=== PATIENT | male | born 1955 | race Caucasian/White ===

== ENCOUNTER 2022-04-07 09:53 | Outpatient (CLI) | payer BC, SELFPAY ==
[2022-04-07 14:33] LABS: Chloride* 101 mmol/L (96-114)
[2022-04-07 14:34] LABS: Potassium* 4.6 mmol/L (3.6-5.1); Sodium* 133 mmol/L (135-149)
[2022-04-07 14:36] LABS: Creatinine* 0.7 mg/dL (0.5-1.5); Estimated Glomerular Filt Rate 102.25
[2022-04-07 14:37] LABS: Blood Urea Nitrogen* 12 mg/dL (7-30); Calcium* 8.9 mg/dL (8.4-10.6); Carbon Dioxide* 27 mmol/L (20-32); Glucose* 207 mg/dL (60-115)
== END 2022-04-07 09:54 | disposition home or self-care (01) ==
PROVIDERS: PCP Internal Medicine; Visit Provider Family Medicine
DX: M10.9 Gout, unspecified (principal); I10 Essential (primary) hypertension
CPT/HCPCS: 80048; 84550

== ENCOUNTER 2022-07-16 16:35 | Outpatient (CLI) | payer BC, SELFPAY ==
--- OUTSIDE RECORDS SUMMARY | 2022-07-20 09:59 | XMS_ITS | Clinical Summary ---
:1955 Author Organization [facility] [place] [address] Care Team Providers Name Role Phone [facility] Primary Care Provider Allergies No known active allergies Medications Medication Sig Dispensed Refills Start Date End Date Status PRILOSEC 20 MG take 1 capsule (20 30 3 11/13/2007 Active CAPIndications: mg) by oral route Abdominal pain, once daily before unspecified site a meal Active Problems Not on file Immunizations Name Administration Dates Next Due Tdap 04/26/2011 Family History Medical History Relation Name Comments Good Health Father Hypertension Father Good Health Paternal Grandfather Relation Name Status Comments Father Paternal Grandfather Social History Tobacco Use Types Packs/Day Years Used Date Never Smoker Comments: occasional cigar Alcohol Use Standard Drinks/Week Comments Yes 0 (1 standard drink = 0.6 oz pure every other weekend 0-2 beers per alcohol) week. Sex Assigned at Date Recorded Not on file Obstetrics History Last Filed Vital Signs Vital Sign Reading Time Taken Comments Blood Pressure 151/94 11/13/2007 2:37 PM [employer] Pulse 66 11/13/2007 2:37 PM [employer] Temperature 36.7 ??C (98 ??F) 11/13/2007 2:37 PM [employer] Respiratory Rate - - Oxygen Saturation - - Inhaled Oxygen Concentration - - Weight 97.9 kg (215 lb 12.8 oz) 11/13/2007 2:37 PM [employer] Height - - Body Mass Index - - Plan of Treatment Upcoming Encounters Date Type Specialty Care Team Description 07/21/2022 Office Visit Tete Merino, DPM [address] [place], [place] [address] (Wo rk) Health Maintenance Due Date Last Done Comments COVID-19 vaccine series (#1) 04/12/1956 Depression screening for age 12+ 1968 BMI (ht and wt on same day) for age 18+ 1974 Hepatitis C screening for age 18-79 1974 Zoster (shingles) series for age 50+ (1 of 2006 2) Lipids for age 45-75 02/04/2012 02/03/2007, 02/03/2007 Colonoscopy through age 75 04/25/2017 04/25/2007 Tetanus booster 04/26/2021 04/26/2011 Pneumococcal series for age 65+ (1 - PCV) 2021 Influenza for age 65+ 06/03/2022 Tdap Completed 04/26/2011 Results Not on filefrom Last 3 Months Insurance Payer Benefit Plan / Subscriber ID Effective Dates Phone Addre ss Type Group [employer] [id number] 2013-[employer] [address] [place] [address] [employer] [place] FED [id number] 2009-[employer]en [address] [address] [place] [address] Chun Mendez Motor Vehicle Self 1955 [address] (Home) [place] [address] Care Teams Pet Ambassador Relationship Specialty Start Date End Date [place] [facility] [place] - [place] 12/08/07 [address] [place] [address]
== END 2022-07-16 16:36 | disposition home or self-care (01) ==
LOC: AMB 07-20 09:48
PROVIDERS: PCP Internal Medicine; Visit Provider Emergency Medicine
DX: S99.912A Unspecified injury of left ankle, initial encounter (principal); W11.XXXA Fall on and from ladder, initial encounter; Y92.9 Unspecified place or not applicable
CPT/HCPCS: A0425; A0427

== ENCOUNTER 2022-07-16 17:12 | Emergency (ER) | payer BC, SELFPAY ==
[2022-07-16] VITALS (55 sets, daily range): BP systolic 133–177; BP diastolic 75–94; PULSE 67–83; RESP 18; TEMP 37.1; O2SAT 92–98; BMI 31.4
--- NOTE | 2022-07-16 | CRLHL7_ITS ---
For Patients: As a result of the Century Cures Act, medical imaging exams and procedure reports are released immediately into your electronic medical record. You may view this report before your referring provider. If you have questions, please contact your health care provider. Indication: Trauma, fall. Technique: Two views of the left calcaneus. Comparison: None Findings/Impression: Obliquely oriented fracture through the mid calcaneus, extending through the inferior calcaneal cortex and involving the talocalcaneal joint. Small ankle joint effusion and edema within Kager`s fat pad. Dictated by Antonio Mancia MD @ 07/16/2022 6:21:23 PM (Electronically Signed)
--- NOTE | 2022-07-16 17:21 | CRLHL7_ITS ---
For Patients: As a result of the Century Cures Act, medical imaging exams and procedure reports are released immediately into your electronic medical record. You may view this report before your referring provider. If you have questions, please contact your health care provider. Indication: Injury. Technique: Three views of the left ankle. Comparison: None available. Findings/Impression: Postsurgical changes of plate and screw fixation of the distal fibula. Prior talus pinning. Ankle mortise is symmetric. Obliquely oriented fracture through the mid calcaneus, with intra-articular involvement of the talocalcaneal joint. Small ankle joint effusion. Edema is noted within Kager`s fat pad. Dictated by Antonio Mancia MD @ 07/16/2022 6:17:45 PM (Electronically Signed)
--- NOTE | 2022-07-16 17:48 | ED_ITS ---
HPI - General Adult General Date Seen: 07/16/22 Chief complaint: Extremity Pain/Injury, Lower Stated complaint: Fell of ladder Time Seen by Provider: 07/16/22 17:21 Source: patient and EMS History of Present Illness HPI narrative: Patient is a 66-year-old male who was 14 ft up on the collapsible ladder when the base of the ladder went out, he says he rode the ladder down landing hard on his feet, he thinks. He complains of pain in his left ankle. He called 911 due to inability to bear weight. He was not given any pain medications by EMS. He says he did not hit his head, denies loss of consciousness. He specifically denies any neck or back pain. Denies chest pain or abdominal pain. No difficulty breathing. No vomiting or nausea. He notes swelling and possible deformity in the left ankle. There is a splint in place from the paramedics. He notes a history of hypertension, did not take his antihypertensive medications this morning. He denies any allergies to medications, does not smoke or drink with any regularity. Not sure when his last tetanus was. He does note that he scraped his right tejada but does not think that there is any bony injury there. Denies any other extremity injury. Related Data Previous Rx's Medication Instructions Recorded losartan 50 mg tablet 50 mg PO QDAY #90 tabs 06/10/22 Allergies Allergy/AdvReac Type Severity Reaction Status Date / Time No Known Allergies Allergy Verified 07/16/22 17:17 Review of Systems Status of ROS: Reports: 10 or more systems reviewed and unremarkable except as noted in History and below [facility] Medical History Gout Obesity with body mass index greater than 30 Obstructive sleep apnea syndrome Primary hypertension Surgical History History of arthroscopic knee surgery (10/21/21) Social History Smoking Status: Never smoker Do you use any of these nicotine containing products: None Second hand tobacco smoke exposure: No How often do you have a drink containing alcohol: 2-4 times a month How many standard drinks containing alcohol do you have on a typical day: 3 or 4 How often do you have six or more drinks on one occasion: Less than monthly AUDIT-C Alcohol total score: 4 Non-prescribed substance use: denies use service: No Exam Narrative: Exam Narrative: Primary survey: Airway: Patent. Breathing: Nonlabored. Lungs clear. Circulation: Pulses intact. No external bleeding. Disability: GCS 15. Secondary survey: Vital signs reviewed In general, an alert, nontoxic Head: Normocephalic, atraumatic. Eyes: Pupils are equal reactive. Extraocular movements full. ENT: No facial trauma. Dentition intact. Neck: Cervical collar in place. No midline cervical tenderness. No anterior neck trauma. Chest: No visible signs of chest trauma. No tenderness to palpation. Heart regular rate and rhythm. Lungs clear bilaterally. Abdomen: No visible signs of trauma. Soft, nondistended, nontender to palpation. Back: No visible signs of trauma. Nontender to palpation. Pelvis: Stable, nontender. Extremities: The left lower extremity is notable for swelling and bruising noted around the ankle and foot. On initial exam I did not palpate the area as he was having significant pain with removal of the splint. Dorsalis pedis pulse was intact. Sensation normal to light touch. On the right, he has a small abrasion over the anterior tibia. There is no bony tenderness or deformity. Bilateral upper extremities are atraumatic. Neurologic: Alert, conversant, moves all extremities to command. Skin: Warm and dry, no abrasions or lacerations. Const: Vital Signs, click to edit/add: Vital Signs - 24 hr 07/16/22 17:17 07/16/22 17:30 07/16/22 17:40 Temperature 98.8 F Pulse Rate 82 79 Pulse Rate [Apical ] 74 Respiratory Rate 18 Blood Pressure Blood Pressure [Le ft Upper Arm] 174/93 H Pulse Oximetry 98 98 97 Oxygen Delivery Me thod Room Air 07/16/22 17:44 07/16/22 17:50 07/16/22 17:52 Temperature Pulse Rate 81 72 74 Pulse Rate [Apical ] Respiratory Rate Blood Pressure 171/91 H 166/92 H Blood Pressure [Le ft Upper Arm] Pulse Oximetry 94 96 96 Oxygen Delivery Me thod 07/16/22 18:00 07/16/22 18:02 07/16/22 18:10 Temperature Pulse Rate 75 75 73 Pulse Rate [Apical ] Respiratory Rate Blood Pressure 172/94 H Blood Pressure [Le ft Upper Arm] Pulse Oximetry 96 98 97 Oxygen Delivery Me thod 07/16/22 18:12 07/16/22 18:20 07/16/22 18:22 Temperature Pulse Rate 71 67 68 Pulse Rate [Apical ] Respiratory Rate Blood Pressure 177/92 H 173/81 H Blood Pressure [Le ft Upper Arm] Pulse Oximetry 97 97 96 Oxygen Delivery Me thod 07/16/22 18:30 Temperature Pulse Rate 70 Pulse Rate [Apical ] Respiratory Rate Blood Pressure Blood Pressure [Le ft Upper Arm] Pulse Oximetry 97 Oxygen Delivery Me thod Documenting provider has reviewed patient's vital signs: yes Course Course Hospital Course: Following initial evaluation, I ordered x-rays of the left ankle based on patient's description of pain and appearance of swelling and bruising around the ankle. However, review those x-rays does show that the ankle has hardware in appears otherwise normal. There is evidence of a calcaneal fracture which certainly fits with his mechanism of injury. Dedicated calcaneal films were therefore ordered. In the meantime, I did a fast exam. I do not see any evidence of pericardial effusion, fluid in splenorenal, Morison's pouch or pelvis views. He has bilateral sliding lung signs. I have asked him several times about any thoracic or lumbar pain, he specifically denies any back pain at all, so at present time I am not pursuing any further imaging. He did request something for pain after his x-rays and is given 4 mg of morphine with improvement in his pain. He has been somewhat hypertensive but otherwise stable from the standpoint of his vital signs. Given that he has not taken his losartan today the hypertension is not unexpected. Patient's tetanus is noted to be updated as of November 2021. X-rays of the calcaneus by my review show an intra-articular fracture of the calcaneus. Final radiology report is as follows:Findings/Impression: Obliquely oriented fracture through the mid calcaneus, extending through the inferior calcaneal cortex and involving the talocalcaneal joint. Small ankle joint effusion and edema within Kager`s fat pad. I sent the x-rays to our orthopedic doctor for review and ice as to whether transfer would be required. I did have to wait about 45 minutes for a response. He did recommend transfer to a trauma facility, so at that time I called [facility] and arranged for transfer to their ER. I also ordered a CT scan of his left foot while he was waiting. I placed a posterior splint as well. He had another 4 mg of morphine for pain control, and I also gave him his 50 mg of losartan. We also had to wait an additional couple hours for transfer, but given that the patient had no other identified injuries, was hemodynamically stable and is unlikely to receive any specific interventions tonight, did not feel that we needed to switch to alternative transportation. Vital Signs Vital signs: Initial Vital Signs Temperature 98.8 F 07/16/22 17:17 Temperature Source Temporal Artery Scan 07/16/22 17:17 Pulse Rate 74 07/16/22 17:17 Pulse Rhythm 07/16/22 17:17 Respiratory Rate 18 07/16/22 17:17 Blood Pressure 174/93 H 07/16/22 17:17 Blood Pressure Mean 120 07/16/22 17:17 Pulse Oximetry 98 07/16/22 17:17 Oxygen Delivery Method 07/16/22 17:17 Vital Signs Temperature 98.8 F 07/16/22 17:17 Pulse Rate 74 07/16/22 17:17 Respiratory Rate 18 07/16/22 17:17 Blood Pressure 174/93 H 07/16/22 17:17 Pulse Oximetry 98 07/16/22 17:17 Oxygen Delivery Method 07/16/22 17:17 Temperature 98.8 F 07/16/22 17:17 Pulse Rate 80 07/16/22 23:20 Respiratory Rate 18 07/16/22 17:17 Blood Pressure 147/78 H 07/16/22 23:02 Pulse Oximetry 94 07/16/22 23:20 Oxygen Delivery Method 07/16/22 17:17 Discharge Plan Discharge Prescriptions: No Action losartan 50 mg tablet 50 mg PO QDAY Qty: 90 4RF Follow Up/Referrals: Marco Antonio Spear MD [Primary Care Provider] -
[2022-07-16] MEDS: MORPHINE 4 MG/ML INJ IVP ×2 (18:37→21:00)
--- NOTE | 2022-07-16 19:34 | CRLHL7_ITS ---
For Patients: As a result of the Century Cures Act, medical imaging exams and procedure reports are released immediately into your electronic medical record. You may view this report before your referring provider. If you have questions, please contact your health care provider. Indication: Calcaneus fracture Technique: Noncontrast CT of the left ankle Please note that all CT scans at this facility use dose modulation, iterative reconstruction, and/or weight-based dosing when appropriate to reduce radiation dose to as low as reasonably achievable. Comparison: Left ankle and calcaneus radiographs from the same day Findings: Markedly comminuted, mildly displaced calcaneal fracture involving the subtalar joint as well as the calcaneal cuboid articulation. No other fracture identified. Plate and screw hardware within the distal fibula. Prior talus pinning. Extensive soft tissue edema about the ankle and foot. Small posterior and plantar calcaneal enthesophytes. Degenerative changes of the tibiotalar joint. The ankle mortise joint is congruent. Impression: Markedly comminuted, mildly displaced, intra-articular fracture of the calcaneus. Please note that all CT scans at this facility use dose modulation, iterative reconstruction, and/or weight-based dosing when appropriate to reduce radiation dose to as low as reasonably achievable. Dictated by Harlan Vo MD @ 07/16/2022 8:15:46 PM (Electronically Signed)
[2022-07-16] MEDS: LOSARTAN POTASSIUM 50 MG TABLET PO (21:42)
--- NOTE | 2022-07-16 23:50 | ED.NURSE ---
RN to RN report given to [facility].
== END 2022-07-16 23:54 | disposition short-term general hospital (02) ==
LOC: ED 18:03
PROVIDERS: Emergency Provider Emergency Medicine; PCP Internal Medicine
DX: S92.012A Displaced fracture of body of left calcaneus, initial encounter for closed fracture (principal); W11.XXXA Fall on and from ladder, initial encounter; Y93.9 Activity, unspecified; Y92.9 Unspecified place or not applicable; Y99.9 Unspecified external cause status
CPT/HCPCS: 73610; 73650; 73700; 96374; 96376; 99284; 99291; A9270; G0390; J2270

== ENCOUNTER 2022-07-16 23:24 | Outpatient (CLI) | payer BC, SELFPAY ==
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
== END 2022-07-16 23:25 | disposition home or self-care (01) ==
LOC: AMB 08-16 16:11
PROVIDERS: PCP Internal Medicine; Visit Provider Emergency Medicine
DX: S92.06 Intraarticular fracture of calcaneus (principal)
CPT/HCPCS: A0425; A0426

== ENCOUNTER 2022-08-06 11:23 | Day surgery (SDC) | payer BC, SELFPAY ==
[2022-08-06] VITALS (15 sets, daily range): BP systolic 91–149; BP diastolic 66–86; PULSE 74–96; RESP 14–16; TEMP 35.9–36.7; O2SAT 93–98; BMI 30.8
[2022-08-06] MEDS: LACTATED RINGERS 1000 ML 1,000 ML 100 ML IV (12:30)
[2022-08-06] MEDS: SODIUM CHLORIDE 0.9 % (FLUSH) 10 ML SYRINGE IVF (12:53)
[2022-08-06] MEDS: MIDAZOLAM HCL 1 MG/ML inj IVP (13:20)
[2022-08-06] MEDS: fentaNYL 100 MCG/2 ML inj IVP (13:20)
--- NOTE | 2022-08-06 13:41 | CRLHL7_ITS ---
For Patients: As a result of the Cures Act, medical imaging exams and procedure reports are released immediately into your electronic medical record. You may view this report before your referring provider. If you have questions, please contact your health care provider. Indication: Intraoperative open reduction and internal fixation of calcaneus Technique: Three intraoperative fluoroscopic images of the left calcaneus Comparison: Left calcaneus radiograph on July 16, 2022 Findings and Impression: Three open reduction internal fixation intraoperative fluoroscopic images of the left calcaneus are provided for non diagnostic interpretation. Please see intraoperative report for details. Fluoroscopy time: 39.4 seconds Dose: 1.1858 mGy Dictated by Elmira Juan MD @ 08/08/2022 6:26:06 PM (Electronically Signed)
[2022-08-06] MEDS: CLINDAMYCIN 900 MG/50 ML-D5W IVPB ×2 (14:05→22:09)
--- NOTE | 2022-08-06 14:12 | P.ANES_ITS ---
Anesthesia Charges Summary Emergency: No
--- NOTE | 2022-08-06 14:12 | W.ANESCHARGE ---
Anesthesia Charges Summary Emergency: No
--- NOTE | 2022-08-06 14:24 | W.PM.NB ---
Nerve Block Nerve Block Time Seen by Provider: 13:15 Date Seen: 08/06/22 Type of block requested by surgeon for post-operative analgesia: popliteal Side: left Time out performed: Yes Verification of patient name: Yes Verification of date of : Yes Site marking: site marked Name of person performing procedure: CHEPE Little Continuous monitoring Was continuous monitoring of O2 sat, B/P, airfield defence guard, recorded every 15 minutes?: Yes Procedure Checklist: sterile prep, needles and gloves Ultrasound guided. Images saved: Yes Medications given in 5ml increments after negative aspiration: Ropivicaine %: 0.5 mL: 20 Needle gauge: 20 Decadron (mg): 10 Patient tolerated procedure well: Yes Block Charges Block Charge (with Pro Fee): Sciatic Nerve Use of Ultrasound Machine for Block: Yes- US Guidance/pain block
--- NOTE | 2022-08-06 14:25 | SUR.OPER ---
PATIENT QUESTIONS ANSWERED SATISFACTORILY PREOPERATIVELY.? PATIENT BROUGHT TO OR #2 PER CART.? Patient positioned supine/ then moved into the right lateral position by T.S. on OR #2 bed.? The perioperative?team supported arms bilaterally on arm boards.? Final approval of positioning by surgeon.?
--- NOTE | 2022-08-06 14:26 | SUR.PREOP ---
TIME?OUT:?1319 PT/RN/MDA?VERIFICATION?OF?SURGICAL?SITE,?PROCEDURE,?AND?CONSENT OBTAINED?PRIOR?TO?INVASIVE?PROCEDURE.
--- NOTE | 2022-08-06 18:16 | SUR.OPER ---
Straight Landaverde catheterization at end of case ((18:15) resulting in clear yellow urine.
--- NOTE | 2022-08-06 18:36 | W.ANESCHARGE ---
Anesthesia Charges Start Date/Time Anesthesia Start Date: 08/06/22 Anesthesia Start Time: 13:43 Stop Date/Time Anesthesia Stop Date: 08/06/22 Anesthesia Stop Time: 18:25 Summary Emergency: No
--- NOTE | 2022-08-06 18:44 | PM.GSPRC ---
Operative Note Date of procedure: 08/06/22 Type of Procedure: ORIF calcaneal fracture left Procedure Description: Preoperative diagnosis: Calcaneal fracture left Postoperative diagnosis: Calcaneal fracture left Procedure: ORIF calcaneal fracture left After discussing the risks and benefits of the procedure, the patient signed informed consent.? The operative site was marked and the patient was brought to the operating room and placed on the operating table in supine position.? Care was taken to pad the patient's pressure points.?? The patient was then administered a spinal anesthetic by anesthesia.?? He had a preoperative popliteal block as well. He was then placed in a lateral decubitus position with beanbag. The operative site was then prepped and draped in the usual sterile fashion.? A time-out was then performed. ? Left limb was exsanguinated and the tourniquet inflated. A standard lateral hockey-stick incision was made over the calcaneus. Incision was carried down through skin subcutaneous tissues carefully making is thick a flap as possible. Superficial dissection was carried out distally in the sural nerve identified and tagged for continued identification during the case. Peroneal tendons were identified and retracted superiorly. Flap was then lifted off the calcaneus. K-wires were placed into the talus x3 and bent to hold the flap retracted during the case. Lateral wall of the fracture was identified and removed placed on the back table. Second fracture fragment of the lateral aspect of the posterior facet was also removed and placed on the back table. This exposed the primary fracture line through the body of the calcaneus. Some healing artery occurred in the [place] was used to free up the fracture site. Threaded K-wires were placed in the calcaneus from posterior approach. The posterior body of the calcaneus was and distracted and rotated out of mild varus and re-establishing length and height. C-arm confirmed position in the K-wires advanced across into the medial posterior facet fragment. Anterior process was evaluated and significantly comminuted. We brought the 2 main fracture fragments together and K-wire was placed across them which reestablished the critical angle of [place]. Next the fracture is is internally were debrided of clot and thorough irrigation performed. The large void in the anterior process and under the posterior facet was filled with bone graft. The lateral fragment with the posterior facet cartilage was then replaced and pinned with a K-wire and anatomic alignment. This was confirmed both visually and with C-arm. The lateral wall was then reapplied. Medium-sized calcaneal plate was applied laterally and anchored in place with K-wires. C-arm confirmed excellent position. Nonlocking screw was placed across the area just inferior to the posterior facet. Locking screw was placed x2 in the posterior body of the calcaneus. Two nonlocking screws were placed in the anterior process. One nonlocking screw placed in the anterior process. Second nonlocking screw placed inferior to the posterior facet. Third locking screws placed in the posterior body. Two additional locking screws were placed in the anterior process. C-arm images confirmed anatomic alignment and appropriate position of hardware. Tourniquet was released and bleeding vessels cauterized. #10 FÁTIMA drain was placed. Attempted to close subcutaneous tissues with 3-0 Vicryl the due to tension as only place a couple. Algower Denoti sutures were placed to reduce tension on the flap with 3-0 nylon. Additional simple sutures were also placed. Once fully closed the incision was reinforced with Ziploc closure. Sterile dressing was applied and well-padded plaster [id number] posterior splint applied. He was straight cathed in the OR. His intake in PACU with vital signs stable and vascular status intact to the left lower extremity. He is med [facility] recovery for pain control and bleeding. Findings: Complications: None apparent Hemostasis: Thigh tourniquet at 300 mm Hg Implants: Freddy calcaneal plate x1 Anesthesia: MAC, regional and spinal Surgeon: Moo Merino DPM Estimated blood loss (mL): 100 Condition: stable Disposition: PACU
--- NOTE | 2022-08-06 21:26 | P.IMHP_ITS ---
Hospitalist- H&P: HPI History of Present Illness Time Seen by Provider: 21:00 Date Seen: 08/06/22 Chief complaint: Surgical repair of left calcaneal fracture Narrative: Chun Mendez is a 66 year old man who presents for surgical repair of a left calcaneal fracture status post injury on 07/16/2022. Surgery undertaken successfully without any apparent complications. Patient was on a ladder place seen insulation in his garage, when the ladder gave out from underneath him and when he fell he fractured his left calcaneus. Had no loss of consciousness. Was placed in a non weight bearing splint using a walker to ambulate and elevating his leg as much as possible. Presents today for the surgical repair. Review of Systems Status of ROS: Reports: 10 or more systems reviewed and unremarkable except as noted in History and below Narrative: Generally is physically active without any stations or concerns. 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 Denies chest heaviness, pressure, tightness, or pain. Denies cough, dyspnea at rest, dyspnea with exertion, paroxysmal nocturnal dyspnea, or orthopnea. Denies dependent edema. No recent fevers, rigors, diaphoresis. Denies nausea or vomiting. No syncope or near syncope. Once again had no loss of consciousness in association with this injury 3 weeks ago. Ordinarily has a bowel movement once daily to once every 2-3 days. Last bowel movement was 2 days ago. Last ate over 24 hours ago. No recent travel. No recent illnesses. Takes his antihypertensive regular late. Did require the use of oxycodone for a period of time after his fracture. Has not been using it lately. Designates his as his primary power of claims attorney should that be required. Requests full resuscitation efforts in the event of cardiopulmonary demise. [facility] Medical History Gout Obesity with body mass index greater than 30 Obstructive sleep apnea syndrome Primary hypertension Surgical History History of arthroscopic knee surgery (10/21/21) Social History Smoking Status: Never smoker Do you use any of these nicotine containing products: None Second hand tobacco smoke exposure: No How often do you have a drink containing alcohol: 2-4 times a month How many standard drinks containing alcohol do you have on a typical day: 3 or 4 How often do you have six or more drinks on one occasion: Never AUDIT-C Alcohol total score: 3 Non-prescribed substance use: denies use service: No Meds Home Medications and Allergies Home Medication Comments: Losartan 50 mg once daily. Acetaminophen 650 mg q.4 hours p.r.n.. Oxycodone 5 mg q.i.d. p.r.n.. Allergies Allergy/AdvReac Type Severity Reaction Status Date / Time cephalexin Allergy Severe Hives Verified 08/06/22 12:39 Exam Narrative: Exam Narrative: Awake, alert, interactive. Oriented to self, place, time, situation. Friendly, talkative. Mood and affect are congruent. Lungs are clear to auscultation. Heart tones with regular rhythm. Abdomen with active bowel sounds. Extremities without edema. No focal motor neurologic deficits. Const: Vital Signs, click to edit/add: Vital Signs - 24 hr 08/06/22 12:18 08/06/22 13:20 08/06/22 13:25 Temperature 98.0 F Pulse Rate 83 83 74 Respiratory Rate 16 16 16 Blood Pressure 147/76 H 149/85 H 138/86 Blood Pressure [Le ft Arm] Pulse Oximetry 97 98 Oxygen Delivery Me thod Room Air Nasal Cannula Nasal Cannula Oxygen Flow Rate 2 2 08/06/22 13:30 08/06/22 18:21 08/06/22 18:30 Temperature 97.6 F Pulse Rate 74 81 85 Respiratory Rate 16 16 16 Blood Pressure 142/80 H 100/66 102/84 Blood Pressure [Le ft Arm] Pulse Oximetry 96 93 Oxygen Delivery Me thod Nasal Cannula Blow By Blow By Oxygen Flow Rate 2 8 8 08/06/22 18:35 08/06/22 18:40 08/06/22 18:44 Temperature 96.7 F L Pulse Rate 84 84 82 Respiratory Rate 14 14 16 Blood Pressure 99/70 91/72 111/74 Blood Pressure [Le ft Arm] Pulse Oximetry 96 96 96 Oxygen Delivery Me thod Blow By Blow By Blow By Oxygen Flow Rate 8 8 8 08/06/22 19:30 Temperature 96.8 F L Pulse Rate 80 Respiratory Rate 16 Blood Pressure Blood Pressure [Le ft Arm] 127/80 Pulse Oximetry Oxygen Delivery Me thod Oxygen Flow Rate Documenting provider has reviewed patient's vital signs: yes Assessment and Plan Assessment and plan (1) Left calcaneal fracture: Problem comment: Status post open reduction internal fixation 08/06/2022. Status: Acute (2) Primary hypertension: Status: Acute (3) Obstructive sleep apnea syndrome: Status: Acute (4) Obesity with body mass index greater than 30: Status: Acute (5) Gout: Status: Acute (6) Influenza vaccination declined by patient: Status: Acute Plan 1. Reviewed with Dr. Moo Merino. 2. Reviewed with patient. 3. Will admit patient to postoperative recovery and monitor with his surgeon. 4. Will hold his antihypertensive for now. 5. Will add senna to his regimen on a scheduled basis for now. 6. PT and OT per Dr. Merino. 7. Will initiate venous thromboembolism prophylaxis starting tomorrow.
[2022-08-07 02:58] VITALS: BP 129/73; PULSE 92; RESP 18; TEMP 36.4; O2SAT 93
--- NOTE | 2022-08-07 04:49 | PC.NURSE ---
Shift note: Post surgical pt condition is stable as v/s recorded WNL. Dressing appears clean and dry. Pt denied any pain at this time. FÁTIMA drained about 110 ml of bloody secretion. Pt able to move the left leg but denied sensation to the toes. Pt has been tolerating clear water very well and have about 500 ml of clear urine. Admitted passing gas. Complained of feeling nauseated but refused any medication. Bedside commode provided for urine. Assist of 1 with walker and JERI NWB to the left leg.
[2022-08-07] MEDS: CLINDAMYCIN 900 MG/50 ML-D5W IVPB (05:43)
[2022-08-07 07:07] LABS: Hematocrit 37.5 % (37.0-53.0); Hemoglobin* 13.1 gm/dL (13.5-17.5); Immature Granulocytes Abs Auto 0.02 K/uL (0.00-0.30); Immature Granulocytes Pct Auto 0.2 %; Lymphocytes Percent Auto 11.1 % (20-44); Mean Corpuscular HGB Conc 35 gm/dL (32-36); Mean Corpuscular Hemoglobin 33 pg (26-34); Mean Corpuscular Volume 94 fL (80-100); Monocytes Percent Auto 3.1 % (0.0-11.0); Neutrophils Percent Auto 85.6 % (42.0-72.0); Platelet Count* 294 K/uL (140-440); RDW Coefficient of Variation % 11.4 % (11.5-15.5); Red Blood Count 4.01 m/uL (4.30-5.90); White Blood Count* 8.99 K/uL (4.50-11.00)
[2022-08-07 07:09] LABS: Slide Review Reflex No
[2022-08-07 07:22] LABS: Albumin* 3.9 g/dL (3.3-5.0); Chloride* 97 mmol/L (96-114)
[2022-08-07 07:23] LABS: Potassium* 4.4 mmol/L (3.6-5.1); Sodium* 133 mmol/L (135-149)
[2022-08-07 07:25] LABS: Creatinine* 0.7 mg/dL (0.5-1.5); Est. Creatinine Clearance* 76.04; Estimated Glomerular Filt Rate 102 ml/min
[2022-08-07 07:26] LABS: Blood Urea Nitrogen* 19 mg/dL (7-30); Calcium* 8.9 mg/dL (8.4-10.6); Carbon Dioxide* 23 mmol/L (20-32); Glucose* 220 mg/dL (60-115); Phosphorus* 3.2 mg/dL (2.5-4.5)
[2022-08-07 08:12] VITALS: BP 115/65; PULSE 95; RESP 18; TEMP 37.1; O2SAT 93
--- NOTE | 2022-08-07 08:18 | PM.IMPN1 ---
Progress Note: A&P Assessment and plan (1) Left calcaneal fracture: Problem details: Status post open reduction internal fixation 08/06/2022. IV clinda ordered 900 q8 will round with podiatry and determine care plan for rest of weekend. Status: Acute (2) Elevated blood sugar: Problem details: adding on A1C - outpatient workup if needed Status: Acute (3) Hyponatremia: Problem details: 133. beer drinking effect? Status: Acute (4) Obstructive sleep apnea syndrome: Status: Acute (5) Primary hypertension: Status: Acute (6) Gout: Status: Acute (7) Obesity with body mass index greater than 30: Status: Acute Subjective Date Seen: 08/07/22 Interval history: Daily Progress Note - Hospital Medicine Day #: 2 Postop day 1 Clindamycin 900 mg IV Q 8, day 2 Left calcaneal ORIF, status post traumatic fall, DOI 07/16/22 OVERNIGHT UPDATES FROM STAFF & MED, LAB, IMAGING UPDATES Shift note: Post surgical pt condition is stable as v/s recorded WNL. Dressing appears clean and dry. Pt denied any pain at this time. FÁTIMA drained about 110 ml of bloody secretion. Pt able to move the left leg but denied sensation to the toes. Pt has been tolerating clear water very well and have about 500 ml of clear urine. Admitted passing gas. Complained of feeling nauseated but refused any medication. Bedside commode provided for urine. Assist of 1 with walker and GB, NWB to the left leg. -no opioids overnight -BS elevated >200. checking A1C -low sodium - checking LFTS, GGT (beer drinking?) Afebrile overnight 129/73, 132/71, 143/81 Pulse 70s to 90s Respiratory rate 16 to 18 Pulse ox 95% on room air Postop hemoglobin 13.1 Review of Systems: See subjective Cardiac: No new chest pain/pressure/palpitations. Respiratory: no new dyspnea. GI: No abdominal bloating Objective: Vitals: see above Lungs: Clear. Cardiac: S1S2. MSK: left foot - surgically wrapped, FÁTIMA in place, dense block noted with little movement/sensation to toes. Disposition/Potential discharge - Likely to return to previous living situation. Total time is 35 minutes with greater than 50% spent in counseling and coordination of care. Exam Const: Vital Signs, click to edit/add: Vital Signs - 24 hr 08/06/22 12:18 08/06/22 13:20 08/06/22 13:25 Temperature 98.0 F Pulse Rate 83 83 74 Pulse Rate [Right Pulse Oximeter] Respiratory Rate 16 16 16 Blood Pressure 147/76 H 149/85 H 138/86 Blood Pressure [Le ft Arm] Pulse Oximetry 97 98 Oxygen Delivery Me thod Room Air Nasal Cannula Nasal Cannula Oxygen Flow Rate 2 2 08/06/22 13:30 08/06/22 18:21 08/06/22 18:30 Temperature 97.6 F Pulse Rate 74 81 85 Pulse Rate [Right Pulse Oximeter] Respiratory Rate 16 16 16 Blood Pressure 142/80 H 100/66 102/84 Blood Pressure [Le ft Arm] Pulse Oximetry 96 93 Oxygen Delivery Me thod Nasal Cannula Blow By Blow By Oxygen Flow Rate 2 8 8 08/06/22 18:35 08/06/22 18:40 08/06/22 18:44 Temperature 96.7 F L Pulse Rate 84 84 82 Pulse Rate [Right Pulse Oximeter] Respiratory Rate 14 14 16 Blood Pressure 99/70 91/72 111/74 Blood Pressure [Le ft Arm] Pulse Oximetry 96 96 96 Oxygen Delivery Me thod Blow By Blow By Blow By Oxygen Flow Rate 8 8 8 08/06/22 19:30 08/06/22 19:30 08/06/22 19:45 Temperature 96.8 F L 97 F L 97 F L Pulse Rate 80 Pulse Rate [Right Pulse Oximeter] 77 77 Respiratory Rate 16 16 16 Blood Pressure Blood Pressure [Le ft Arm] 127/80 124/69 107/67 Pulse Oximetry 93 93 Oxygen Delivery Me thod Room Air Room Air Oxygen Flow Rate 08/06/22 20:30 08/06/22 21:00 08/06/22 22:00 Temperature 97.4 F L 97.3 F L Pulse Rate Pulse Rate [Right Pulse Oximeter] 80 75 78 Respiratory Rate 16 16 16 Blood Pressure Blood Pressure [Le ft Arm] 119/78 126/73 143/81 H Pulse Oximetry 96 94 97 Oxygen Delivery Me thod Room Air Room Air Room Air Oxygen Flow Rate 08/06/22 23:00 08/07/22 02:58 Temperature 97.4 F L 97.6 F Pulse Rate Pulse Rate [Right Pulse Oximeter] 96 92 Respiratory Rate 16 18 Blood Pressure Blood Pressure [Le ft Arm] 132/71 129/73 Pulse Oximetry 95 93 Oxygen Delivery Me thod Room Air Room Air Oxygen Flow Rate Labs Labs: Laboratory Results - last 24 hr 08/07/22 08/07/22 06:36 06:36 WBC 8.99 RBC 4.01 L Hgb 13.1 L Hct 37.5 MCV 94 MCH 33 MCHC 35 RDW Coeff of Rhonda 11.4 L Plt Count 294 Neut % (Auto) 85.6 H Lymph % (Auto) 11.1 L [place] % (Auto) 3.1 Eos % (Auto) 0.0 Baso % (Auto) 0.0 Neut # (Auto) 7.70 H Lymph # (Auto) 1.00 [place] # (Auto) 0.30 Eos # (Auto) 0.00 Baso # (Auto) 0.00 Abs Immat Gran (auto) 0.02 Imm/Tot Granulo (auto) 0.2 Sodium 133 L Potassium 4.4 Chloride 97 Carbon Dioxide 23 BUN 19 Creatinine 0.7 Estimated Creat Clear 76.04 Estimated GFR 102 Glucose 220 H Calcium 8.9 Phosphorus 3.2 Albumin 3.9
[2022-08-07] MEDS: ENOXAPARIN 30 MG/0.3ML INJ SUBCUT (09:10)
[2022-08-07] MEDS: SENNOSIDES/DOCUSATE TABLET 1 TAB PO (09:10)
[2022-08-07 11:29] LABS: Alkaline Phosphatase* 73 U/L (40-150); Aspartate Amino Transferase* 38 U/L (12-35); Bilirubin Direct* 0.2 mg/dL (0.0-0.5); Bilirubin Total* 0.6 mg/dL (0.1-1.5); Total Protein* 6.7 g/dL (6.0-8.3)
[2022-08-07 11:30] LABS: Alanine Aminotransferase* 29 U/L (4-50); Gamma Glutamyl Transpeptidase* 56 U/L (8-55)
[2022-08-07 11:57] VITALS: BP 100/71; PULSE 89; RESP 18; TEMP 37.1; O2SAT 92
--- NOTE | 2022-08-07 12:44 | P.PODPN_ITS ---
Podiatry-PN: Subj Subjective Time Seen by Provider: 12:15 Date Seen: 08/07/22 Interval history: Patient seen bedside this a.m. with no complaints. He is resting comfortably. He is remaining nonweightbearing. Currently has no pain as the popliteal block is still working with feels the numbness is starting to wear off. He denies any chest pain shortness of breath calf pain. Feels ready to go home. Progress Note: A&P Assessment and plan (1) Left calcaneal fracture: Problem details: Status post open reduction internal fixation 08/06/2022. Status: Acute Assessment and Plan: With a drain output pain less than 10 mL it was pulled today without incident. Splint is left intact is in good condition. He has passed physical therapy and will continue with the walker and walker for nonweightbearing. His home is well equipped for remaining nonweightbearing. Discharge home today. Oxycodone 5-10 mg Q 4 hours as needed for pain and Vistaril 25-50 mg q.4 hours as needed for pain sent to the [facility] [place]. Plan Discharge home today. Discharge instructions sheet from Dr. Merino given. Follow-up appointment appointment scheduled Tuesday next week at [facility]. Exam Narrative: Exam Narrative: Splint is clean dry and intact. Faint sensation to light touch at the digits. Toes are warm to touch with good capillary fill time. Drain output last shift was 7 mL. Const: Vital Signs, click to edit/add: Vital Signs - 24 hr 08/06/22 13:20 08/06/22 13:25 08/06/22 13:30 Temperature Pulse Rate 83 74 74 Pulse Rate [Right Pulse Oximeter] Respiratory Rate 16 16 16 Blood Pressure 149/85 H 138/86 142/80 H Blood Pressure [Le ft Arm] Pulse Oximetry 98 Oxygen Delivery Me thod Nasal Cannula Nasal Cannula Nasal Cannula Oxygen Flow Rate 2 2 2 08/06/22 18:21 08/06/22 18:30 08/06/22 18:35 Temperature 97.6 F Pulse Rate 81 85 84 Pulse Rate [Right Pulse Oximeter] Respiratory Rate 16 16 14 Blood Pressure 100/66 102/84 99/70 Blood Pressure [Le ft Arm] Pulse Oximetry 96 93 96 Oxygen Delivery Me thod Blow By Blow By Blow By Oxygen Flow Rate 8 8 8 08/06/22 18:40 08/06/22 18:44 08/06/22 19:30 Temperature 96.7 F L 96.8 F L Pulse Rate 84 82 80 Pulse Rate [Right Pulse Oximeter] Respiratory Rate 14 16 16 Blood Pressure 91/72 111/74 Blood Pressure [Le ft Arm] 127/80 Pulse Oximetry 96 96 Oxygen Delivery Me thod Blow By Blow By Oxygen Flow Rate 8 8 08/06/22 19:30 08/06/22 19:45 08/06/22 20:30 Temperature 97 F L 97 F L Pulse Rate Pulse Rate [Right Pulse Oximeter] 77 77 80 Respiratory Rate 16 16 16 Blood Pressure Blood Pressure [Le ft Arm] 124/69 107/67 119/78 Pulse Oximetry 93 93 96 Oxygen Delivery Me thod Room Air Room Air Room Air Oxygen Flow Rate 08/06/22 21:00 08/06/22 22:00 08/06/22 23:00 Temperature 97.4 F L 97.3 F L 97.4 F L Pulse Rate Pulse Rate [Right Pulse Oximeter] 75 78 96 Respiratory Rate 16 16 16 Blood Pressure Blood Pressure [Le ft Arm] 126/73 143/81 H 132/71 Pulse Oximetry 94 97 95 Oxygen Delivery Me thod Room Air Room Air Room Air Oxygen Flow Rate 08/07/22 02:58 08/07/22 08:12 08/07/22 11:57 Temperature 97.6 F 98.8 F 98.7 F Pulse Rate Pulse Rate [Right Pulse Oximeter] 92 95 89 Respiratory Rate 18 18 18 Blood Pressure Blood Pressure [Le ft Arm] 129/73 115/65 100/71 Pulse Oximetry 93 93 92 Oxygen Delivery Me thod Room Air Room Air Room Air Oxygen Flow Rate Podiatry-PN: Obj Labs Labs: Laboratory Results - last 24 hr 08/07/22 08/07/22 06:36 06:36 WBC 8.99 RBC 4.01 L Hgb 13.1 L Hct 37.5 MCV 94 MCH 33 MCHC 35 RDW Coeff of Rhonda 11.4 L Plt Count 294 Neut % (Auto) 85.6 H Lymph % (Auto) 11.1 L [place] % (Auto) 3.1 Eos % (Auto) 0.0 Baso % (Auto) 0.0 Neut # (Auto) 7.70 H Lymph # (Auto) 1.00 [place] # (Auto) 0.30 Eos # (Auto) 0.00 Baso # (Auto) 0.00 Abs Immat Gran (auto) 0.02 Imm/Tot Granulo (auto) 0.2 Sodium 133 L Potassium 4.4 Chloride 97 Carbon Dioxide 23 BUN 19 Creatinine 0.7 Estimated Creat Clear 76.04 Estimated GFR 102 Glucose 220 H Calcium 8.9 Phosphorus 3.2 Total Bilirubin 0.6 Direct Bilirubin 0.2 GGT 56 H AST 38 H ALT 29 Alkaline Phosphatase 73 Total Protein 6.7 Albumin 3.9
[2022-08-07 14:32] VITALS: BP 111/74; PULSE 80; RESP 18; TEMP 37.1
--- NOTE | 2022-08-07 14:32 | PC.NURSE ---
Discharge: Patient pleasant and cooperative, worked with PT today and went well. IV removed with catheter intact. No c/o pain or nausea, vitals stable and WNL. FÁTIMA drain removed by surgeon. Patient discharged via wheelchair @ 1430 with , discharged to home.
[2022-08-09 03:29] LABS: Hemoglobin A1C* 8.23 % (0-5.6)
== END 2022-08-07 14:20 | disposition home or self-care (01) ==
LOC: OR 11:27 → MEDSURG 19:14
PROVIDERS: Family Medicine; Internal Medicine; PCP Internal Medicine; Visit Provider Podiatrist
PROC: (CPT 28420; principal; 2022-08-06 12:30)
DX: S92.002A Unspecified fracture of left calcaneus, initial encounter for closed fracture (principal)
CPT/HCPCS: 28420; 01480; 36415; 64445; 73650; 76000; 76942; 80069; 80076; 82977; 83036; 85025; 97161; A9270; C1713; J1100; J1650; J2250; J2370; J2405; J2704; J2795; J3010; J3490; J7120; S0077

== ENCOUNTER 2022-09-14 12:49 | Outpatient (CLI) | payer BC, SELFPAY ==
--- NOTE | 2022-09-14 13:00 | MR_ITS ---
[facility] [address] [facility] [address] Phone:?[phone] Fax:?[phone] Referring Physician Information: Marco Antonio Spear M.D. [address] [facility] [address] Phone:?[phone] Fax:?[phone] Patient:Amandeep Mendez D.O.B:?1955 Sex:?Male Phone:?[phone] [facility] MRN:?[id number] Exam Date:?09/14/2022 ? EXAM: MRI of the RIGHT KNEE, without contrast CLINICAL HISTORY: Medial right knee pain. Suspect meniscal injury. COMPARISONS: None available. TECHNICAL: MR sequences of the right knee: sagittals: PD, PDFS coronals: PD, STIR axials: PD, T2 FS CONTRAST: None SEDATION: None FINDINGS: Bones: Surgical changes status post intramedullary vic and interlocking screw fixation are seen within the imaged portion of the distal right femur. 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 Retinacula: The medial and lateral retinacula are intact. Fat pads: The infrapatellar, quadriceps, and prefemoral fat pads are unremarkable. Knee joint: Effusion: Physiologic amount of joint fluid. Popliteal cyst: None. Intra-articular bodies: None. Posteromedial corner: The semimembranosus and pes anserine tendons are intact. Medial compartment: Medial meniscus: Diminution of the body and posterior horn of the medial meniscus likely reflects surgical change status post previous partial medial meniscectomy. Recurrent complex tear of the body of the medial meniscus is suspected best seen on coronal series 7 images 16 and 17. 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 Lateral compartment: Lateral meniscus: 1.0 cm in length ill-defined degenerative free edge tear of the body of the lateral meniscus best seen on coronal series 7 images 17 through 19. Cartilage: 1.8 cm in AP dimension by 1.1 cm in transverse dimension area of full-thickness chondromalacia over the weight-bearing portion of the lateral femoral condyle with associated central osteophytosis best seen on coronal series 7 image 20 and sagittal series 5 image 10. 2.0 x 2.0 cm area of grade III chondromalacia over the central, posterior, and medial portions of the lateral tibial plateau. Ligaments: Anterior cruciate ligament: Intact. Posterior cruciate ligament: Intact. Medial collateral ligament: Intact. Posterior oblique ligament: Intact. Fibular collateral ligament: Intact. Posterolateral corner: The distal biceps femoris tendon, iliotibial band, popliteus tendon, popliteus muscle, popliteofibular ligament, and arcuate ligament are intact. Extensor mechanism: Patellar tendon: Intact. Quadriceps tendon: Intact. IMPRESSION: 1. Diminution of the body and posterior horn of the medial meniscus likely reflects surgical change status post partial medial meniscectomy. Suspected recurrent complex tear of the body of the medial meniscus. Correlation with surgical history and any available previous MRI of the right knee could be pursued to better differentiate chronic pathology/postoperative change from recurrent medial meniscal pathology. 2. 1.0 cm in length ill-defined degenerative free edge tear of the body of the lateral meniscus. Correlate with surgical history and any available previous MRI. 3. 1.8 x 1.1 cm area of full-thickness chondromalacia over the weight-bearing portion of the lateral femoral condyle with associated central osteophytosis and a 2.0 x 2.0 cm area of grade III chondromalacia over the central, posterior, and medial portions of the lateral tibial plateau. 4. 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 Scattered superimposed full-thickness chondral fissures over the lateral weightbearing portion of the medial femoral condyle with mild subjacent degenerative subchondral cystic changes. 5. 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 6. Surgical changes status post intramedullary vic and interlocking screw fixation are seen within the imaged portion of the distal right femur. RCB Electronically signed on 09/15/2022 7:00:00 AM by Heriberto Phillips M.D.
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
== END 2022-09-14 12:50 | disposition home or self-care (01) ==
LOC: MRI 12:49
PROVIDERS: PCP Internal Medicine; Visit Provider Internal Medicine
DX: M25.561 Pain in right knee (principal); M23.221 Derangement of posterior horn of medial meniscus due to old tear or injury, right knee; M23.201 Derangement of unspecified lateral meniscus due to old tear or injury, left knee; M94.261 Chondromalacia, right knee
CPT/HCPCS: 73721

== ENCOUNTER 2024-09-05 08:54 | Outpatient (CLI) | payer MEDICARE, BC, SELFPAY ==
--- OUTSIDE RECORDS SUMMARY | 2024-09-10 18:45 | XMS_ITS | Clinical Summary ---
Author Organization [facility] Address [place], [place] [address] Care Team Providers Care Product Architect Name Role Phone Marco Antonio Spear MD Primary Care Provider Allergies No known active allergies Medications losartan (COZAAR) 50 mg tablet Take 50 mg by mouth once daily. 04/07/2022 Active durable medical equipment (DME)Indications: Follow-up exam,Closed displaced fracture of right calcaneus, unspecified portion of calcaneus, initial encounter AIR SELECT, SHORT, MEDIUM, REF: 01ES-M 1 Each 09/21/2022 Active durable medical equipment (DME)Indications: Follow-up exam 01ES-L Airselect, Short, Large 1 Each 10/07/2022 Active Immunizations Name Administration Dates Next Due Tdap 04/26/2011 Family History Medical History Relation Name Comments Good Health Father Hypertension Father Good Health Paternal Grandfather Relation Name Status Comments Father Paternal Grandfather Social History Tobacco Use Types Packs/Day Years Used Date Smoking Tobacco: Never Smokeless Tobacco: Never Tobacco Cessation:Counseling Given: Yes Alcohol Use Standard Drinks/Week Comments Yes 0 (1 standard drink = 0.6 oz pure alcohol) every other weekend 0-2 beers per week. Sex and Gender Information Value Date Recorded Sex Assigned at Not on file Legal Sex Male 6:44 AM [employer] Gender Identity Not on file Sexual Orientation Not on file Obstetrics History Last Filed Vital Signs Vital Sign Reading Time Taken Comments Blood Pressure 162/81 07/13/2023 1:03 PM CDT Pulse 75 07/13/2023 1:03 PM CDT Temperature 36.5 C (97.7 F) 09/21/2022 3:58 PM [employer] Respiratory Rate - - Oxygen Saturation 95% 07/13/2023 1:03 PM CDT Inhaled Oxygen Concentration - - Weight 105.7 kg (233 lb) 11/17/2022 1:47 PM [employer] Height 180.3 cm (5' 11) 10/20/2022 3:38 PM [employer] Body Mass Index 32.5 10/20/2022 3:38 PM [employer] Plan of Treatment Health Maintenance Due Date Last Done Comments Depression screening for age 12+ 1968 Hepatitis C screening for age 18-79 1974 Zoster (shingles) series for age 50+ (1 of 2) 2006 Lipids for age 45-75 02/04/2012 02/03/2007, 02/04/20 Colonoscopy through age 75 04/25/2017 04/25/2007 Tetanus booster 04/26/2021 04/26/2011 Pneumococcal series for age 65+ (1 of 1 - PCV) 2021 BMI (ht and wt on same day) for age 18+ 10/20/2023 0 10/20/2022, 08/10/2022 COVID-19 vaccine series ( - season) 2024 10/09/2021, 12/26/2020 Influenza for age 65+ 06/03/2024 Tdap Completed 04/26/2011 Procedures Procedure Name Priority Date/Time Associated Diagnosis Comments CHOLESTEROL,TOTAL Routine 02/03/2007 10: 16 AM CDT Routine General Medical Exam from Last 3 Months or Most Recently Relevant to Health Maintenance Results * (ABNORMAL) CHOLESTEROL,TOTAL (02/03/2007 10:16 AM CDT) CHOLESTEROL,TO TONEY 234(H) 110 - 199 mg/dL [facility] Blood specimen (specimen) BLOOD SPECIMEN / Unknown 02/03/2007 10:16 AM CDT 02/03/2007 10:08 AM CDT us Jeremiah Cardenas MD CHEMISTRY Final Result [facility] [address] [place] [address] from Last 3 Months or Most Recently Relevant to Health Maintenance Insurance [employer] [place] [employer] Care Teams Product Architect Relationship Specialty Start Date End Date Marco Antonio Spear MD [address] [place] [address] PCP - General Internal Medicine 07/21/22
== END 2024-09-05 08:55 | disposition home or self-care (01) ==
LOC: NFLDREF 09-10 18:44
PROVIDERS: PCP Internal Medicine; Referring Provider Internal Medicine; Visit Provider Internal Medicine
DX: I10 Essential (primary) hypertension (principal); Z12.5 Encounter for screening for malignant neoplasm of prostate; Z13.6 Encounter for screening for cardiovascular disorders
CPT/HCPCS: 80053; 80061; G0103

== ENCOUNTER 2025-02-11 08:36 | Outpatient (CLI) | payer MEDICARE, BC, SELFPAY | END 2025-02-11 08:37 | disposition home or self-care (01) | LOC: NFLDREF 02-19 15:56 | PROVIDERS: PCP Internal Medicine; Referring Provider Internal Medicine; Visit Provider Internal Medicine | DX: E11.65 Type 2 diabetes mellitus with hyperglycemia (principal); Z79.84 Long term (current) use of oral hypoglycemic drugs | CPT/HCPCS: 82043; 82570 ==